=== PATIENT | male | born 1955 | race Caucasian/White ===

== ENCOUNTER 2017-01-11 14:07 | Emergency (ER) | payer OTHER ==
[~2017-01-11] VITALS: Ht 172.7 cm; Wt 81.6 kg
[2017-01-11 14:18] VITALS: BP 151/78
--- NOTE | 2017-01-11 14:24 | NUR ---
Patient ambulated to bed 08.
--- NOTE | 2017-01-11 14:25 | NUR ---
61/M presents to the ED for evaluation of amputation right hand 3rd digit. Tip of finger amputated. Pt explains he got his hand caught with the trunk door of his car. Stump of finger bleeding, dry sterile pressure dressing applied. Pt has good CMS intact. Denies pain at this time. Denies medical history. Pt is AOX4, clear speech, [place] speaking. VSS. Pt is relaxed and calm, no visible signs of distress.
--- NOTE | 2017-01-11 14:28 | NUR ---
Tip of finger placed in biohazard bag and place on ice by CROW Neil and placed at bedside with patient.
[2017-01-11] MEDS ORDERED: ceFAZolin 1,000 MG VIAL IM ONE (14:30)
[2017-01-11] MEDS ORDERED: LIDOCAINE 1% 500 MG/50 ML VIAL INJ SCH (14:30)
[2017-01-11] MEDS ORDERED: LIDOCAINE 1% ED 50 ML ONE (14:36)
[2017-01-11] MEDS ORDERED: WATER STERILE 10 ML MC ONE (14:37)
--- NOTE | 2017-01-11 14:40 | NUR ---
Pt explains he got his Tetanus vaccine approximately [address] Saab made aware and cancelled the order.
--- NOTE | 2017-01-11 14:58 | NUR ---
Dr. Saab at bedside to do procedure.
--- NOTE | 2017-01-11 15:08 | NUR ---
X-ray to be done prior to suture repair per Dr. Saab orders.
--- NOTE | 2017-01-11 15:11 | NUR ---
XRAY at bedside.
--- NOTE | 2017-01-11 15:47 | NUR ---
Patient found sitting in bed, no signs of distress. Calm and relaxed.
--- NOTE | 2017-01-11 15:48 | NUR ---
Dr. Saab at bedside for suture procedure.
[2017-01-11] MEDS ORDERED: BACITRACIN OINT 500 UNITS/GM PKT TP ONE (16:54)
[2017-01-11 17:25] VITALS: BP 157/94
--- NOTE | 2017-01-11 17:25 | NUR ---
Chart checked and completed. The patient's care was reviewed and supervised by Andre Lee RN.
--- NOTE | 2017-01-11 17:25 | NUR ---
Patient discharged with v/s stable. Written and verbal after care instructions given and explained. Patient alert, oriented and verbalized understanding of instructions. Ambulatory with steady gait. All questions addressed prior to discharge. ID band removed. Patient advised to follow up with PMD. Rx of PERCOCET,DOXYCYCLINE given. Patient educated on indication of medication including possible reaction and side effects. Opportunity to ask questions provided and answered.
== END 2017-01-11 17:25 | disposition home or self-care (01) ==
LOC: MED 14:07
DX: S62.632A Displaced fracture of distal phalanx of right middle finger, initial encounter for closed fracture (principal); W22.8XXA Striking against or struck by other objects, initial encounter; Y93.89 Activity, other specified; Y92.89 Other specified places as the place of occurrence of the external cause; Y99.8 Other external cause status
CPT/HCPCS: 12002; 73140; 96372; 99284; J0690; J2001; Q0092